=== PATIENT | female | born 1970 | race Two or more races ===

== ENCOUNTER 2020-12-10 10:16 | Emergency (ER) | payer MEDICAID ==
[~2020-12-10] VITALS: Ht 154.9 cm; Wt 70.3 kg
[2020-12-10 10:26] VITALS: BP 130/92
--- NOTE | 2020-12-10 10:54 | Emergency Room Report ---
History of Present Illness General Chief Complaint: Pain Source: Patient Present Illness HPI Patient presents with 3 days of right upper quadrant and right sided chest pain. It also is radiating to her back. She had some vomiting yesterday. She did look at what the vomitus looked like. She is moving her bowels without any change in bowel habits. She has had this pain before but never had this severe or a diagnosis. She was seen a year ago in the clinic without much of a work- up. She tried taking Tylenol but it did not help. Her pain is rated 10/10. She denies any fevers or chills. She points to her right upper quadrant and below her right breast area and states it is also severe in her back. It is constant and not pleuritic. He denies any cough or hemoptysis. Patient denies exposure to Covid positive contacts. No sore throat, palpitations, diarrhea, dysuria, shortness of breath, rashes, headache. 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 Patient History Past Medical History: see triage record Social History: Denies: smoking, alcohol use, drug use Social History Narrative Unemployed Now: No Reviewed Nursing Documentation: PMH: Agreed; PSxH: Agreed Nursing Documentation-PMH Past Medical History: No Stated History Review of Systems All Other Systems: negative except mentioned in HPI Physical Exam Vital Signs Date Time Temp Pulse Resp B/P (MAP) Pulse Ox O2 Delivery O2 Flow Rate FiO2 12/10/20 10:26 98.1 66 16 130/92 (105) 97 Room Air Sp02 EP Interpretation: reviewed, normal General Appearance: well appearing, no apparent distress, GCS 15 Head: normocephalic Eyes: bilateral eye normal inspection, bilateral eye PERRL ENT: other - Wearing a mask Neck: supple Respiratory: lungs clear, normal breath sounds, other - Paraspinous tenderness right side of spine in chest Cardiovascular #1: regular rate, rhythm Cardiovascular #2: 2+ radial (R) Gastrointestinal: normal inspection, normal bowel sounds, no mass, non- distended, no guarding, no rebound, tenderness - Minimal right upper quadrant Genitourinary: no CVA tenderness Musculoskeletal: normal range of motion, gait/station normal, other - Reports tenderness right posterior back Neurologic: alert, oriented x3, grossly normal Psychiatric: mood/affect normal Skin: no rash, warm/dry Medical Decision Making Diagnostic Impression: Primary Impression: Gall stone Qualified Codes: K80.20 - Calculus of gallbladder without cholecystitis without obstruction Additional Impressions: Biliary colic Back pain Qualified Codes: M54.6 - Pain in thoracic spine ER Course Patient presents with right upper quadrant and right chest pain radiating to her back that she has had intermittently but worse for 3 days. Differential includes pleurisy, moderate embolus, gallbladder disease, peptic ulcer disease amongst others. Patient evaluated with chest x-ray, EKG, ultrasound of abdomen and labs. Patient treated with IV hydration, Reglan, morphine and Pepcid. Exam is inconsistent with pulmonary embolus. EKG normal sinus rhythm with nonspecific ST-T wave changes. Chest x-ray normal. White count normal. CMP and lipase normal. Ultrasound with gallstones and gallbladder wall thickening and positive Victor sign. Patient improved with treatment. Still complaining about some back pain. Discussed findings with patient. Discussed treatment plan. Did discuss the need for outpatient follow-up. Discussed the need for dietary modification. Patient stable for outpatient observation and treatment. Laboratory Tests Test 12/10/20 10:42 White Blood Count 7.8 K/UL (4.8-10.8) Red Blood Count 5.51 M/UL (4.20-5.40) H Hemoglobin 16.3 G/DL (12.0-16.0) H Hematocrit 48.7 % (37.0-47.0) H Mean Corpuscular Volume 88 FL (80-99) Mean Corpuscular Hemoglobin 29.5 PG (27.0-31.0) Mean Corpuscular Hemoglobin Concent 33.4 G/DL (32.0-36.0) Red Cell Distribution Width 13.5 % (11.6-14.8) Platelet Count 187 K/UL (150-450) Mean Platelet Volume 9.9 FL (6.5-10.1) Neutrophils (%) (Auto) 51.3 % (45.0-75.0) Lymphocytes (%) (Auto) 34.4 % (20.0-45.0) Monocytes (%) (Auto) 5.9 % (1.0-10.0) Eosinophils (%) (Auto) 6.7 % (0.0-3.0) H Basophils (%) (Auto) 1.7 % (0.0-2.0) Prothrombin Time 10.9 SEC (9.30-11.50) Prothrombin Time INR 1.0 (0.9-1.1) Activated Partial Thromboplast Time 29 SEC (23-33) Urine Color Pale yellow Urine Appearance Slightly cloudy Urine pH 8 (4.5-8.0) Urine Specific [place] 1.010 (1.005-1.035) Urine Protein Negative (NEGATIVE) Urine Glucose (UA) Negative (NEGATIVE) Urine Ketones Negative (NEGATIVE) Urine Blood Negative (NEGATIVE) Urine Nitrite Negative (NEGATIVE) Urine Bilirubin Negative (NEGATIVE) Urine Urobilinogen Normal MG/DL (0.0-1.0) Urine Leukocyte Esterase 2+ (NEGATIVE) H Urine RBC 0-2 /HPF (0 - 2) Urine WBC 0-2 /HPF (0 - 2) Urine Squamous Epithelial Cells Moderate /LPF (NONE/OCC) H Urine Bacteria Occasional /HPF (NONE) Sodium Level 144 MMOL/L (136-145) Potassium Level 3.7 MMOL/L (3.5-5.1) Chloride Level 106 MMOL/L (98-107) Carbon Dioxide Level 29 MMOL/L (21-32) Anion Gap 9 mmol/L (5-15) Blood Urea Nitrogen 10 mg/dL (7-18) Creatinine 0.6 MG/DL (0.55-1.30) Estimated Glomerular Filtration Rate > 60 mL/min (>60) Glucose Level 80 MG/DL (74-106) Calcium Level 9.5 MG/DL (8.5-10.1) Total Bilirubin 0.6 MG/DL (0.2-1.0) Aspartate Amino Transferase (AST) 20 U/L (15-37) Alanine Aminotransferase (ALT) 42 U/L (12-78) Alkaline Phosphatase 91 U/L (46-116) Total Protein 8.1 G/DL (6.4-8.2) Albumin 4.1 G/DL (3.4-5.0) Globulin 4.0 g/dL Albumin/Globulin Ratio 1.0 (1.0-2.7) Lipase 124 U/L (73-393) EKG Diagnostic Results Rate: normal Rhythm: NSR ST Segments: no acute changes Rhythm Strip Diag. Results EP Interpretation: yes Rhythm: NSR, no PVC's, no ectopy CT/MRI/US Diagnostic Results CT/MRI/US Diagnostic Results : Imaging Test Ordered: Ultrasound abdomen Impression Impression: Cholelithiasis. Gallbladder wall thickening and positive sonographic Victor sign raises concern for acute cholecystitis. Negative for dilated bile ducts. Liver demonstrates diffusely increased echogenicity, consistent with diffuse hepatocellular disease, most likely fatty change. Last Vital Signs Date Time Temp Pulse Resp B/P (MAP) Pulse Ox O2 Delivery O2 Flow Rate FiO2 12/10/20 11:41 Room Air 12/10/20 10:26 98.1 66 16 97 Status: improved Disposition: HOME, SELF-CARE Condition: Improved Scripts Ondansetron Odt* (ZOFRAN ODT*) 4 Mg Tab.rapdis 4 MG BC EVERY 8 HOURS PRN for Nausea & Vomiting, #10 TAB 0 Refills Prov: Gustavo Oneill MD 12/10/20 Hydrocodone Bit/Acetaminophen (HYDROCODON-ACETAMINOPHEN 5-300) 1 Each Tablet 1 EACH PO Q6HR, #10 TAB Prov: Gustavo Oneill MD 12/10/20 Referrals: NOT CHOSEN IPA/,REFERRING (PCP) Gustavo Oneill MD Dec 10, 2020 10:54
[2020-12-10] MEDS ORDERED: Metoclopramide 10mg/2ml Inj IVP ONE (11:00)
[2020-12-10] MEDS ORDERED: Morphine Sulfate 2mg/ml Inj(IV/IM USE ONLY) IVP ONE (11:00)
[2020-12-10 11:36] LABS: BASOPHILS % (AUTO) 1.7 % (0.0-2.0); EOSINOPHILS % (AUTO) 6.7 % (0.0-3.0); HEMATOCRIT 48.7 % (37.0-47.0); HEMOGLOBIN 16.3 G/DL (12.0-16.0); LYMPHOCYTES % (AUTO) 34.4 % (20.0-45.0); MEAN CORPUSCULAR VOLUME 88 FL (80-99); MONOCYTES % (AUTO) 5.9 % (1.0-10.0); NEUTROPHILS % (AUTO) 51.3 % (45.0-75.0); PLATELET COUNT 187 K/UL (150-450); RED BLOOD COUNT 5.51 M/UL (4.20-5.40); RED CELL DISTRIBUTION WIDTH 13.5 % (11.6-14.8); WHITE BLOOD COUNT 7.8 K/UL (4.8-10.8)
[2020-12-10 11:37] LABS: APPEARANCE,URINE SLIGHTLY CLOUDY; BILIRUBIN, URINE NEGATIVE (NEGATIVE); COLOR,URINE PALE YELLOW; GLUCOSE, URINE (UA) NEGATIVE (NEGATIVE); KETONES,URINE NEGATIVE (NEGATIVE); LEUKOCYTE ESTERASE ,URINE 2+ (NEGATIVE); NITRITE,URINE NEGATIVE (NEGATIVE); PH,URINE 8 (4.5-8.0); PROTEIN,URINE NEGATIVE (NEGATIVE); UROBILINOGEN,URINE NORMAL MG/DL (0.0-1.0)
[2020-12-10 12:00] LABS: ANION GAP 9 mmol/L (5-15); BLOOD UREA NITROGEN 10 mg/dL (7-18); CALCIUM 9.5 MG/DL (8.5-10.1); CARBON DIOXIDE 29 MMOL/L (21-32); CHLORIDE 106 MMOL/L (98-107); CREATININE 0.6 MG/DL (0.55-1.30); POTASSIUM 3.7 MMOL/L (3.5-5.1); SODIUM 144 MMOL/L (136-145)
[2020-12-10 12:05] LABS: ALANINE AMINOTRANSFERASE 42 U/L (12-78); ALBUMIN 4.1 G/DL (3.4-5.0); ALKALINE PHOSPHATASE 91 U/L (46-116); ASPARTATE AMINO TRANSFERASE 20 U/L (15-37); BILIRUBIN,TOTAL 0.6 MG/DL (0.2-1.0)
[2020-12-10] MEDS ORDERED: ONDANSETRON ODT4 MG BC (12:53)
[2020-12-10] MEDS ORDERED: HYDROCODON-ACE1 EA18 PO (12:53)
--- NOTE | 2020-12-10 15:55 | Diagnostic Imaging Report ---
Indication: Cough Technique: One view of the chest Comparison: none Findings: Lungs and pleural spaces are clear. Heart size is normal. Impression: No acute process
--- NOTE | 2020-12-10 16:35 | Diagnostic Imaging Report ---
Indication: Abdominal pain Technique: [place]isano-scale and duplex images of the upper abdomen were obtained Comparison: none Findings: Gallbladder demonstrates gallstones. Gallbladder wall is mildly thickened, measuring 4 mm thick. No pericholecystic fluid. Sonographic Victor sign is positive Common bile duct measures 3 mm in diameter. No intrahepatic biliary ductal dilatation. Liver demonstrates diffusely increased echogenicity, consistent with diffuse hepatocellular disease, most likely fatty change. Portal vein and hepatic veins are patent. Pancreas is unremarkable. Spleen is unremarkable. Left kidney measures and 11.2 cm in length. Right kidney measures 10.2 cm length. Both kidneys demonstrate normal echogenicity. There is no hydronephrosis. No focal abnormality . Non-aneurysmal abdominal aorta . Unremarkable inferior vena cava Impression: Cholelithiasis. Gallbladder wall thickening and positive sonographic Victor sign raises concern for acute cholecystitis. Negative for dilated bile ducts. Liver demonstrates diffusely increased echogenicity, consistent with diffuse hepatocellular disease, most likely fatty change.
--- NOTE | 2020-12-11 15:00 | Cardiology Report ---
APPROVED REPORT EKG Measurement Heart [id number] <Conclusion> Normal sinus rhythm Nonspecific T wave abnormality Abnormal ECG
== END 2020-12-10 13:10 | disposition home or self-care (01) ==
LOC: EMR 10:49
DX: K80.20 Calculus of gallbladder without cholecystitis without obstruction (principal); K80.50 Calculus of bile duct without cholangitis or cholecystitis without obstruction; M54.6 Pain in thoracic spine
CPT/HCPCS: 36415; 71045; 76700; 80053; 81003; 83690; 85025; 85610; 85730; 93005; 96361; 96374; 96375; J2270; J2765; J7030; S0028; Z7502; 99284